=== PATIENT | female | born 1940 | race Caucasian/White ===

== ENCOUNTER → 2022-11-18 | Outpatient (CLI) | payer OTHER ==
[~2022-11-18] MED LIST: ASPI81CH PO; CALCAVITD PO; ESTR1 PO; HYDACE5 PO; SIMV40 PO; TIMDOROPSO OD; TRAV.004OP OU
== END | disposition home or self-care (01) ==
LOC: LAB 16:50 → LAB SHORT 16:50
DX: N39.0 Urinary tract infection, site not specified (principal)
CPT/HCPCS: 87077; 87086; 87186

== ENCOUNTER → 2022-12-03 | Outpatient (CLI) | payer OTHER | END | disposition home or self-care (01) | LOC: LAB SHORT 13:45 → LAB 13:45 | DX: N39.0 Urinary tract infection, site not specified (principal) | CPT/HCPCS: 87086 ==